=== PATIENT | male | born 1995 | race Caucasian/White ===

== ENCOUNTER 2017-07-17 08:42 | Emergency (ER) | payer SELFPAY ==
[~2017-07-17] VITALS: Ht 175.3 cm; Wt 97.6 kg
[~2017-07-17 08:42] MED LIST: ACHD5005 PO; LEVO500T80 PO; ONDAN4ODT PO
--- OUTSIDE RECORDS SUMMARY | 2017-07-17 08:50 | XMS REPORT ---
Author Author AD MARX Organization [employer] Address Unknown Phone Unavailable Care Team Providers Care Weight Shifter Name Role Phone DA MARX CP Unavailable Allergies, Adverse Reactions, Alerts Substance Reaction Event Type N.K.D.A. Info Not Available Non Drug Allergy Problems Problem Type Condition Code Onset Dates Condition Status Assessment Intractable migraine without aura and without status migrainosus G43.019 Active Medications No Known Medications Procedures Procedure Coding System Code Date TORADOL (IM) 60 MG/2ML (UP TO 15 MG) CPT-4 J1885 May 07, 2015 THER/PROPH/DIAG INJ, SC/IM CPT-4 14739 May 07, 2015 Office Visit, Est Pt., Level 3 CPT-4 02013 May 07, 2015 PHENERGAN (IM) 25 MG (25 MG/ML) CPT-4 J2550 May 07, 2015 Vital Signs Date/Time: May 07, 2015 Temperature 98.0 F Weight 190.8 lbs Height 68 in Pain Scale 7.5 1-10 Blood Pressure Diastolic 74 mmHg Blood Pressure Systolic 128 mmHg Cardiac Monitoring Heart Rate 74 bpm BMI 29.01 Index Results No Known Results Summary Purpose [employer] Submission
--- OUTSIDE RECORDS SUMMARY | 2017-07-17 08:50 | XMS REPORT ---
Author Author ULI CLARK Organization [employer] Address Unknown Phone Unavailable Care Team Providers Care Foreign Language Instructor Name Role Phone ULI CLARK CP Unavailable Allergies, Adverse Reactions, Alerts Substance Reaction Event Type N.K.D.A. Info Not Available Non Drug Allergy Problems Problem Type Condition Code Onset Dates Condition Status Assessment Sore throat J02.9 Active Medications No Known Medications Procedures Procedure Coding System Code Date Office Visit, Est Pt., Level 3 CPT-4 09754 Jul 28, 2015 Vital Signs Date/Time: Jul 28, 2015 Temperature 98.6 F Weight 202.4 lbs Height 68 in BMI 30.77 Index Blood Pressure Diastolic 82 mmHg Blood Pressure Systolic 124 mmHg Cardiac Monitoring Heart Rate 74 bpm Results No Known Results Summary Purpose [employer] Submission
--- OUTSIDE RECORDS SUMMARY | 2017-07-17 08:50 | XMS REPORT ---
Author Author MADAI Barroso Organization [facility] Address Unknown Care Team Providers Care Farm Loan Inspector Name Role Phone MADAI Barroso Unavailable PROBLEMS Type Condition ICD9-CM Code [id number] Code Onset Dates Condition Status SNOMED Code Assessment Right wrist pain M25.531 Oct, Active [id number] ALLERGIES Substance Reaction Event Type Date Status N.K.D.A. Unknown Non Drug Allergy Oct, Unknown SOCIAL HISTORY No smoking Hx information available PLAN OF CARE VITAL SIGNS Height 68 in 2015-10-12 Weight 211.8 lbs 2015-10-12 Heart Rate 76 bpm 2015-10-12 Respiratory Rate 18 2015-10-12 BMI 32.20 kg/m2 2015-10-12 Blood pressure systolic 124 mmHg 2015-10-12 Blood pressure diastolic 92 mmHg 2015-10-12 MEDICATIONS Medication Instructions Dosage Frequency Start Date End Date Duration Status Naprosyn 500 MG Orally every 12 hrs 1 tablet as needed 12h Oct, Oct, 07 days Active RESULTS No Results PROCEDURES Procedure Date Ordered Related Diagnosis Body Site X-RAY EXAM OF WRIST October 12, 2015 X-RAY EXAM OF HAND October 12, 2015 THER/PROPH/DIAG INJ, SC/IM October 12, 2015 TORADOL (IM) 60 MG/2ML (UP TO 15 MG) October 12, 2015 IMMUNIZATIONS Vaccine Route Administration Date Status TORADOL (IM) 60 MG/2ML (UP TO 15 MG) Unknown October 12, 2015 Administered
--- OUTSIDE RECORDS SUMMARY | 2017-07-17 08:50 | XMS REPORT ---
Author Author BOONE FOSS Organization [facility] Address [address] [place] [address] Care Team Providers Care Flat Optical Element Maker Name Role Phone BOONE FOSS Unavailable PROBLEMS Unknown Problems ALLERGIES Substance Reaction Event Type Date Status N.K.D.A. Unknown Non Drug Allergy Mar, Unknown SOCIAL HISTORY No smoking Hx information available PLAN OF CARE Activity Details Follow Up prn Reason: VITAL SIGNS Height 68 in 2016-04-01 Weight 217.4 lbs 2016-04-01 Temperature 97.9 degrees Fahrenheit 2016-04-01 Heart Rate 84 bpm 2016-04-01 Respiratory Rate 16 2016-04-01 BMI 33.05 kg/m2 2016-04-01 Blood pressure systolic 126 mmHg 2016-04-01 Blood pressure diastolic 84 mmHg 2016-04-01 MEDICATIONS No Known Medications RESULTS No Results PROCEDURES Procedure Date Ordered Related Diagnosis Body Site TORADOL (IM) 60 MG/2ML (UP TO 15 MG) Apr 01, 2016 THER/PROPH/DIAG INJ, SC/IM Apr 01, 2016 Office Visit, Est Pt., Level 3 Apr 01, 2016 IMMUNIZATIONS Vaccine Route Administration Date Status TORADOL (IM) 60 MG/2ML (UP TO 15 MG) IM Intramuscular Apr 01, 2016 Administered
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
[2017-07-17] MEDS ORDERED: IBUPROFEN 800 MG (MOTRIN) TAB PO ONE (08:54)
[2017-07-17] MEDS ORDERED: ACETAMINOPHEN 500 MG TAB (TYLENOL) ONE (08:55)
[2017-07-17] MEDS ORDERED: IBUPROFEN 800 MG (MOTRIN) TAB PO STA (08:55)
[2017-07-17] MEDS ORDERED: ACETAMINOPHEN 500 MG TAB (TYLENOL) PO STA (08:55)
--- NOTE | 2017-07-17 09:59 | ED Cough/URI ---
General Chief Complaint: Cough/Cold/Flu Symptoms Stated Complaint: FEVER OF 103 Nursing Triage Note: PT TO ROOM 6 PT CO OF COLD COUGH AND FLU SX SINCE TUESDAY, PT STATES FEVER UP TO 103.6 AT HOME, HAS NOT TAKEN TYLENOL SINCE LAST PM. Source: patient Exam Limitations: no limitations History of Present Illness Time seen by provider: 08:55 Initial Comments Here with report of cough and cold symptoms since Tuesday 4 days ago. Fever reportedly 103 at home. He has not taken any Tylenol or ibuprofen today. He did take Tylenol yesterday. He did not get his flu shot. He is over the road salesforce administrator. Denies nausea or vomiting. Timing/Duration: getting worse, other (4 days) Severity/Quality: moderate, dry cough Prior Episodes/Possible Cause: occasional episodes Associated Symptoms: cough, fever/chills, muscle aches, nasal congestion, nasal drainage, sore throat Allergies and Home Medications Allergies Coded Allergies: latex (Verified Allergy, Severe, RASH, 05/15/13) Home Medications No Active Prescriptions or Reported Meds Constitutional: see HPI, chills, fever, malaise EENTM: see HPI Respiratory: see HPI Cardiovascular: no symptoms reported, No chest pain Gastrointestinal: No abdominal pain, No nausea, No vomiting Genitourinary: no symptoms reported Musculoskeletal: see HPI, muscle pain, No muscle stiffness Skin: no symptoms reported Psychiatric/Neurological: See HPI, Headache (mild global), Denies Numbness, Denies Paresthesia Hematologic/Lymphatic: No Symptoms Reported All Other Systems Reviewed Negative Unless Noted: Yes Past Zdoalcw-Tcimhp-Crgkxq Hx Patient Social History Alcohol Use: Denies Use Recreational Drug Use: No Smoking Status: Current Everyday Smoker Type Used: Cigarettes, Smokeless Tobacco Former Smoker, Quit: Mar 16, 2016 Recent Foreign Travel: No Contact w/Someone Who Travel: No Recent Infectious Disease Expo: No Recent Hopitalizations: No Physical Abuse: No Sexual Abuse: No Immunizations Up To Date Tetanus Booster (TDap): Less than 5yrs Seasonal Allergies Seasonal Allergies: No Surgeries History of Surgeries: Yes (TEETH REMOVED) Respiratory History of Respiratory Disorde: No Cardiovascular History of Cardiac Disorders: No Neurological History of Neurological Disord: No Reproductive System Hx Reproductive Disorders: No Gastrointestinal History of Gastrointestinal Di: No Musculoskeletal History of Musculoskeletal Dis: No Endocrine History of Endocrine Disorders: No Cancer History of Cancer: No Psychosocial History of Psychiatric Problem: No Suicide Risk Score: 0 Integumentary History of Skin or Integumenta: No Blood Transfusions History of Blood Disorders: No Reviewed Nursing Assessment Reviewed/Agree w Nursing PMH: Yes Family Medical History Significant Family History: No Pertinent Family Hx Physical Exam Vital Signs Vital Sign - Last 12Hours 07/17/17 08:45 Temp 102.4 Pulse 112 Resp 18 B/P (MAP) 144/80 (101) Pulse Ox 97 Capillary Refill : Less Than 3 Seconds General Appearance: WD/WN, no apparent distress HEENT: PERRL/EOMI, pharyngeal erythema, other (moderate bilateral nasal congestion with clear rhinorrhea and moderate erythema) Neck: full range of motion, supple Respiratory: lungs clear, normal breath sounds Cardiovascular: regular rate, rhythm, no murmur, tachycardia Gastrointestinal: non tender, soft Extremities: non-tender, normal inspection Neurologic/Psychiatric: alert, oriented x 3 Skin: normal color, warm/dry Progress/Results/Core Measures Suspected Sepsis Recent Fever Within 48 Hours: Yes Infection Criteria Present: Suspected New Infection New/Unexplained Altered Menta: No Sepsis Screen: Possible Sepsis Risk Sepsis Diagnosis: SIRS Temperature:102.4 Pulse: 112 Respiratory Rate: 18 Blood Pressure 144 /80 Mean: 101 Results/Orders Micro Results Microbiology 07/17/17 Influenza Types A,B Antigen (EDYTA) - Final, Complete My Orders Orders - JOAO CORONADO MD Influenza A And B Antigens (07/17/17 08:50) Acetaminophen Tablet (Tylenol Tablet) (07/17/17 08:55) Ibuprofen Tablet (Motrin Tablet) (07/17/17 08:55) Ibuprofen Tablet (Motrin Tablet) (07/17/17 08:54) Acetaminophen Tablet (Tylenol Tablet) (07/17/17 08:55) Vital Signs/I&O Vital Sign - Last 12Hours 07/17/17 08:45 Temp 102.4 Pulse 112 Resp 18 B/P (MAP) 144/80 (101) Pulse Ox 97 Capillary Refill : Less Than 3 Seconds Blood Pressure Mean: 101 Progress Note : Progress Note Seen and evaluated. Influenza screen ordered. Ibuprofen 800 mg by mouth and Tylenol 1000 mg by mouth ordered. Monitor patient. 0950: Influenza screen is positive. Fever down to 99.7. Feels a little better. Tamiflu would not be of benefit on this patient due to length of time with illness. This was discussed with the patient who agrees. Discharged home with return precautions. Patient verbalize understanding instructions and agreement with plan. Departure Impression Impression: Primary Impression: Influenza A Disposition: 01 HOME, SELF-CARE Condition: Stable Departure-Patient Inst. Decision time for Depature: 09:58 Referrals: [facility] (PCP/Family) Primary Care Physician Patient Instructions: Flu, Adult (DC) Add. Discharge Instructions: All discharge instructions reviewed with patient and/or family. Voiced understanding. You may take ibuprofen 800 mg every 8 hours as needed for pain and fever. You may take Tylenol 1000 mg every 8 hours as needed. Pain or fever. Drink plenty of fluids. Get plenty of rest. Return for worsening, fever, vomiting, weakness , breathing problems or other concerns as needed. Scripts No Active Prescriptions or Reported Meds JOAO CORONADO MD Jul 17, 2017 09:59
[2017-07-17 10:03] VITALS: BP 144/80
== END 2017-07-17 10:02 | disposition home or self-care (01) ==
LOC: EDUNIT# 08:42 → ER 08:45
DX: J10.1 Influenza due to other identified influenza virus with other respiratory manifestations (principal); F17.210 Nicotine dependence, cigarettes, uncomplicated
CPT/HCPCS: 87804; 99283

== ENCOUNTER 2019-02-01 09:44 | Day surgery (SDC) | payer OTHER ==
[~2019-02-01] VITALS: Ht 175.3 cm; Wt 108.9 kg
[2019-02-01] VITALS (10 sets, daily range): BP systolic 123–139; BP diastolic 56–79
--- OUTSIDE RECORDS SUMMARY | 2019-02-01 09:51 | XMS REPORT ---
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 [facility] [place] [address] [address] Oct, [facility] [id number] [place] [address] Jul, Encounter for immunization Z23 [facility] [address] [address] Jan, Bronchitis J40 [facility] [place] [id number] [place] [address] Mar, Left facial swelling R22.0 [facility] [place] [id number] [place] [address] Oct, Right wrist pain M25.531 [facility] [id number] [place] [address] Jul, Sore throat J02.9 [facility] [place] [id number] [place] [phone] Apr, Intractable migraine without aura and without status migrainosus G43.019 [facility] [address] [place] [phone] Dec, Dental examination V72.2 [facility] [place] [id number] [place] [address] Oct, [place] [id number] [address] Oct, [facility] [place] [address] [place] [address] Oct, [facility] [place] [address] [place] [address] Oct, [facility] [place] [address] [place] [address] Sep, [facility] [place] [address] [place] [address] Sep, [facility] [place] [address] [place] [address] May, [facility] [place] [address] [place] [address] May, IMMUNIZATIONS No Known Immunizations SOCIAL HISTORY Never Assessed [place]AS[place] [place] VITAL SIGNS MEDICATIONS Medication Instructions Dosage Frequency Start Date End Date Duration Status Ativan 0.5 mg 1 tablet by Oral route 1 time per day PRN take prn for anxiety Oct, Active RESULTS No Results PROCEDURES No Known procedures INSTRUCTIONS MEDICATIONS ADMINISTERED No Known Medications MEDICAL (GENERAL) HISTORY Type Description Date Medical History hypoglycemia Medical History Rib fracture right side. Hospitalization History Right side pain 2015
--- OUTSIDE RECORDS SUMMARY | 2019-02-01 09:51 | XMS REPORT ---
Author Author JUDE BOBO [facility] Address [address] [place] [address] Phone Unavailable Care Team Providers Care Wreath And Garland Maker Hand Name Role Phone JUDE BOBO Unavailable Unavailable PROBLEMS Unknown Problems ALLERGIES No Information ENCOUNTERS Encounter Location Date Diagnosis [facility] [address] [address] Oct, [facility] [address] [address] Jul, Encounter for immunization Z23 [facility] [address] [address] Jan, Bronchitis J40 [facility] [address] [address] Mar, Left facial swelling R22.0 [facility] [address] [address] Oct, Right wrist pain M25.531 [facility] [id number] [place] [address] Jul, Sore throat J02.9 [facility] [address] [address] Apr, Intractable migraine without aura and without status migrainosus G43.019 [facility] [id number] [place] [phone] Dec, Dental examination V72.2 [facility] [address] [address] Oct, 2014 [facility] [address] [address] Oct, [facility] [address] [facility] [id number] [address] Oct, [facility] [id number] [address] Oct, [facility] [id number] [address] Sep, [facility] [id number] [address] Sep, [facility] [id number] [address] May, [facility] [id number] [address] May, IMMUNIZATIONS No Known Immunizations SOCIAL HISTORY Never Assessed REASON FOR VISIT [facility]---HIV DRAW- Pt brought kit and remediation consultant for specimen. Lab was drawn and sent f or testing.----GENI PLAN OF CARE VITAL SIGNS MEDICATIONS Unknown Medications RESULTS No Results PROCEDURES No Known procedures INSTRUCTIONS MEDICATIONS ADMINISTERED No Known Medications MEDICAL (GENERAL) HISTORY Type Description Date Medical History hypoglycemia Hospitalization History Right side pain
--- OUTSIDE RECORDS SUMMARY | 2019-02-01 09:51 | XMS REPORT ---
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 [facility] [id number] [place] [address] Oct, [facility] [address] [address] Jul, Encounter for immunization Z23 [facility] [id number] [place] [address] Jan, Bronchitis J40 [facility] [id number] [place] [address] Mar, Left facial swelling R22.0 [facility] [id number] [place] [address] Oct, Right wrist pain M25.531 [facility] [id number] [place] [address] Jul, Sore throat J02.9 [facility] [address] [address] Apr, Intractable migraine without aura and without status migrainosus G43.019 [facility] [id number] [place] [id number] Dec, Dental examination V72.2 [facility] [address] [place] [address] 14 Oct, 2014 [facility] [id number] [address] 13 Oct, 2014 [facility] [address] [id number] [address] Oct, [facility] [address] [id number] [address] Oct, [facility] [address] [id number] [address] Sep, [facility] [id number] [address] Sep, [facility] [id number] [address] May, [facility] [address] [id number] [address] May, IMMUNIZATIONS No Known Immunizations SOCIAL HISTORY Never Assessed REASON FOR VISIT [facility] (PHA, vision, audio).GENI PLAN OF CARE Activity Details Follow Up prn Reason: VITAL SIGNS Height 68 in 2018-02-14 Weight 230 lbs 2018-02-14 Temperature 98.9 degrees Fahrenheit 2018-02-14 Heart Rate 76 bpm 2018-02-14 Respiratory Rate 16 2018-02-14 BMI 34.97 kg/m2 2018-02-14 Blood pressure systolic 110 mmHg 2018-02-14 Blood pressure diastolic 80 mmHg 2018-02-14 MEDICATIONS Medication Instructions Dosage Frequency Start Date End Date Duration Status Ibuprofen 200 MG Orally every 6 hrs 1 tablet with food or milk as needed 6h Active RESULTS No Results PROCEDURES Procedure Date Ordered Result Body Site VISUAL ACUITY SCREEN Feb 14, 2018 AUDIOMETRY-SCREEN Feb 14, 2018 INSTRUCTIONS MEDICATIONS ADMINISTERED No Known Medications MEDICAL (GENERAL) HISTORY Type Description Date Medical History hypoglycemia Medical History Rib fracture right side. Hospitalization History Right side pain 2015
--- OUTSIDE RECORDS SUMMARY | 2019-02-01 09:51 | XMS REPORT ---
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 [facility] [address] [address] Oct, [facility] [id number] [place] [address] Jul, Encounter for immunization Z23 [facility] [address] [address] Jan, Bronchitis J40 [facility] [place] [id number] [place] [address] Mar, Left facial swelling R22.0 [facility] [place] [id number] [place] [address] Oct, Right wrist pain M25.531 [facility] [id number] [place] [address] Jul, Sore throat J02.9 [facility] [id number] [place] [address] Apr, Intractable migraine without aura and without status migrainosus G43.019 [facility] [address] [place] [id number] Dec, Dental examination V72.2 [facility] [id number] [place] [phone] Oct, [place] [id number] [address] Oct, [facility] [id number] [address] Oct, [facility] [address] [place] [address] Oct, [facility] [id number] [address] Sep, [facility] [id number] [address] Sep, [facility] [id number] [address] May, [facility] [id number] [address] May, IMMUNIZATIONS No Known Immunizations SOCIAL HISTORY Never Assessed REASON FOR VISIT [facility] PLAN OF CARE VITAL SIGNS MEDICATIONS Unknown Medications RESULTS No Results PROCEDURES No Known procedures INSTRUCTIONS MEDICATIONS ADMINISTERED No Known Medications MEDICAL (GENERAL) HISTORY Type Description Date Medical History hypoglycemia Medical History Rib fracture right side. Hospitalization History Right side pain 2015
--- OUTSIDE RECORDS SUMMARY | 2019-02-01 09:52 | XMS REPORT ---
Author Author BOONE FOSS Organization [facility] Address [address] [place] [address] Care Team Providers Care Ore Crusher Name Role Phone BOONE FOSS Unavailable PROBLEMS Unknown Problems ALLERGIES No Known Allergies ENCOUNTERS Encounter Location Date Diagnosis [facility] [address] [address] Oct, [facility] [address] [address] Jul, Encounter for immunization Z23 [facility] [address] [address] Jan, Bronchitis J40 [facility] [address] [address] Mar, Left facial swelling R22.0 [facility] [address] [address] Oct, Right wrist pain M25.531 [facility] [address] [address] Jul, Sore throat J02.9 [facility] [address] [address] Apr, Intractable migraine without aura and without status migrainosus G43.019 [facility] [address] [id number] Dec, Dental examination V72.2 [facility] [address] [address] 14 Oct, 2014 [facility] [address] [address] Oct, [facility] [address] [facility] [id number] [address] Oct, [facility] [address] [facility] [id number] [address] Oct, [facility] [address] [facility] [id number] [address] Sep, [facility] [address] [facility] [id number] [address] Sep, [facility] [address] [facility] [id number] [address] May, [facility] [address] [facility] [id number] [address] May, IMMUNIZATIONS No Known Immunizations SOCIAL HISTORY Never Assessed REASON FOR VISIT Cough, feels crackling when exhale, up at night JStrasserRN, Dislocated hip abou t 1 month ago - was treated at some clinic near [facility] Activity Details Follow Up prn Reason: VITAL SIGNS Height 68 in 2017-01-13 Weight 211.0 lbs 2017-01-13 Temperature 97.5 degrees Fahrenheit 2017-01-13 Heart Rate 88 bpm 2017-01-13 Respiratory Rate 18 2017-01-13 Oximetry 95 % 2017-01-13 BMI 32.08 kg/m2 2017-01-13 Blood pressure systolic 132 mmHg 2017-01-13 Blood pressure diastolic 98 mmHg 2017-01-13 MEDICATIONS Medication Instructions Dosage Frequency Start Date End Date Duration Status PredniSONE 20 mg Orally Once a day 2 tablet 24h Jan, Jan, 05 days Active Ibuprofen 200 MG Orally every 6 hrs 1 tablet with food or milk as needed 6h Active RESULTS No Results PROCEDURES Procedure Date Ordered Result Body Site NEBULIZER TREATMENT 2017-01-13 N/A NEB/MDI RX INITIAL January 13, 2017 MEASURE BLOOD OXYGEN LEVEL January 13, 2017 INSTRUCTIONS MEDICATIONS ADMINISTERED No Known Medications MEDICAL (GENERAL) HISTORY Type Description Date Medical History hypoglycemia Hospitalization History Right side pain
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
--- NOTE | 2019-02-01 10:03 | Progress Note-Pre Operative ---
Pre-Operative Progress Note H&P Reviewed The H&P was reviewed, patient examined and no changes noted. Time Seen by Provider: 10:01 Date H&P Reviewed: Feb 01, 2019 Time H&P Reviewed: 10:02 Pre-Operative Diagnosis: Pilonidal Cyst BHAVNA ZAMUDIO DO Feb 01, 2019 10:03
[2019-02-01] MEDS ORDERED: LACTATED RINGERS 1,000 ML IV PRN (10:56)
[2019-02-01] MEDS ORDERED: ceFAZolin 2 GM/50 ML NS 50 ML IV ONE (11:00)
[2019-02-01] MEDS ORDERED: LIDOCAINE PF 2% 5 ML (XYLOCAINE) VIAL ONE (11:40)
[2019-02-01] MEDS ORDERED: proPOfol 200 MG/20 ML (DIPRIVAN) VIAL IV ONE (11:40)
[2019-02-01] MEDS ORDERED: ROCURONIUM 10 MG/ML 5 ML SYRINGE IV ONE (11:40)
[2019-02-01] MEDS ORDERED: ONDANSETRON 4 MG/2 ML (SDV) Z0FRAN ONE (11:40)
[2019-02-01] MEDS ORDERED: MIDAZOLAM 2 MG/2 ML (VERSED) VIAL ONE (11:41)
[2019-02-01] MEDS ORDERED: fentaNYL INJECTION 100 MCG/2 ML AMP ONE (11:41)
[2019-02-01] MEDS ORDERED: BUP/EPI 0.5% 1:200,000 (MARCAINE) 10ML VIAL IJ ONE (11:41)
[2019-02-01] MEDS ORDERED: GLYCOPYRROLATE 0.2 MG/ML (ROBINUL) 2 ML VIAL ONE (11:49)
[2019-02-01] MEDS ORDERED: NEOSTIGMINE 3 MG/3 ML VIAL ONE (11:49)
[2019-02-01] MEDS ORDERED: ACHD5005 PO (12:26)
--- NOTE | 2019-02-01 12:26 | Progress Note-Post Operative ---
Post-Operative Progess Note Surgeon (s)/Operations Intelligence (s) Surgeon BHAVNA ZAMUDIO DO Operations Intelligence: none Pre-Operative Diagnosis Pilonidal Cyst Post-Operative Diagnosis same Procedure & Operative Findings Date of Procedure 02/01/19 Procedure Performed/Findings Exc pilonidal cyst; appx 4cm long by 3 cm deep by 0.5 cm wide Anesthesia Type GET Estimated Blood Loss Estimated blood loss (mL): scant Specimens/Packing Specimens Removed pilonidal cyst BHAVNA ZAMUDIO DO Feb 01, 2019 12:25
--- NOTE | 2019-02-01 12:28 | Discharge Inst-Surgical ---
Discharge Inst-Surgical Depart Medication/Instructions New, Converted or Re-Newed RX: RX Given to Pt/Family Patient Instructions Follow up Appt: Make appointment for 2 weeks. [phone] Instructions: No strenuous activity. May shower in 24 hours, no tub bath or soaking. Use incentive spirometer at home as directed. No Smoking Skin/Wound Care: May remove bandages in am. You need to leave the Dermabond on incision it will fall off on it's own. Symptoms to Report: Appetite Changes, Extremity Discoloration, Numbness/Tingling, Swelling Increased, Bleeding Excessive, Eyesight Changes, Pain Increased, Urine Color Ch iza, Constipation(Persistent), Fever over 101 degree F, Pain/Pressure in chest, Urinating Difficulty, Cough Up/Vomit Blood, Heart Beat Irreg/Pounding, Pain/Pressure in jaw, Cramps in feet or legs, Lightheadedness, Pain/Pressure in shoulder, Diarrhea(Persistent), Memory Changes Suddenly, Questions/Concerns, Weight gain consecutive days, Dizziness/Fainting, Nausea/Vomiting, Shortness of Breath, Weight gain over 2 pounds If questions or concerns contact your physician Or seek help at emergency department. Activity Activity as Tolerated: Yes Activity Instructions: Avoid Stress to Incision Driving Instructions: No Driving/Refer to Dr. Lawson Discharge Diet: No Restrictions Diet After 24 Hours: Clear Liquid if Nauseous If Any Problems/Questions/Issu: Contact Your Physician, Go to Emergency Room Skin/Wound Care Infection Signs and Symptoms: Increased Redness, Foul Odor of Wound, Increased Drainage, Skin Itchy or Has a Rash, Increased Swelling, Temperature Above 101 F Wound Care Comment: Come to the office for packing changes Bathing Instructions: BHAVNA Montelongo DO Feb 01, 2019 12:28
[2019-02-01] MEDS ORDERED: SEVOFLURANE (ULTANE) 15 ML INHAL SOLN ONE (12:42)
[2019-02-01] MEDS ORDERED: PROMETHAZINE INJ 25 MG/ML (PHENERGAN) AMP IVP ONE (12:45)
[2019-02-01] MEDS ORDERED: morphine INJ 10 MG/ML 1ML (SYR OR VIAL) IVP ONE (12:45)
[2019-02-01] MEDS ORDERED: HYDROmorphone 2 MG/ML VIAL (DILAUDID) IV ONE (12:45)
[2019-02-01] MEDS ORDERED: ONDANSETRON 4 MG/2 ML (SDV) Z0FRAN IVP PRN (12:45)
[2019-02-01] MEDS ORDERED: MEPERIDINE (DEMEROL) INJ 50 MG/ML IVP ONE (12:45)
--- NOTE | 2019-02-01 12:48 | Anesthesia-General Post-Op ---
General Patient Condition Mental Status/LOC: Same as Preop Cardiovascular: Satisfactory Nausea/Vomiting: Absent Respiratory: Satisfactory Pain: Controlled Complications: Absent Post Op Complications Complications None Follow Up Care/Instructions Patient Instructions None needed. Anesthesia/Patient Condition Patient Condition Patient is doing well, no complaints, stable vital signs, no apparent adverse anesthesia problems. No complications reported per nursing. MACIEJ MCDOWELL CRNA Feb 01, 2019 12:48
--- NOTE | 2019-02-01 14:59 | OPERATIVE REPORT ---
DATE OF SERVICE: 02/01/2019 PREOPERATIVE DIAGNOSIS: Pilonidal cyst. POSTOPERATIVE DIAGNOSIS: Pilonidal cyst. PROCEDURE: Excision of pilonidal cyst. SURGEON: Adarsh Sketlon DO. DROP MAN: None. ANESTHESIA: General endotracheal tube. SPECIMEN: Pilonidal cyst. BLOOD LOSS: Scant. FLUIDS: Per anesthesia. POSTOPERATIVE CONDITION: Stable. INDICATION FOR PROCEDURE: The patient is a 23-year-old male who had a pilonidal cyst with abscess that had been drained and now wants to get this removed. FINDINGS: The patient had a pilonidal cyst removed. PROCEDURE NOTE: After informed consent was obtained, the patient was brought to the operating room, intubated and then placed on the table in prone position. He was then sterilely prepped and draped in normal fashion. Local lidocaine was used to infiltrate the area around the pilonidal cyst and made an elliptical incision around the tracks measured about 4 cm x about 3 cm deep x only about 0.5 cm wide. I made an incision with #15 blade, carried down through the skin into subcutaneous tissue then deepened down to subcutaneous tissue with Bovie electrocautery through the fat to try to go around the tracks and remove them completely all the way down to the cecum then passed this off to pathology. Copiously irrigated with normal saline. Hemostasis obtained using Bovie electrocautery. I elected to pack with 0.5-inch iodoform packing packed and then cleaned the area, placed a dressing. The patient tolerated the procedure. Sponge, instrument and needle count correct at the end of the case. Job ID: [id number] DocumentID: [id number] Dictated Date: 02/01/2019 12:24:11 Physician Assistant Date: 02/01/2019 14:58:57 Dictated By: ADARSH SKELTON DO [facility]
== END 2019-02-01 14:40 | disposition home or self-care (01) ==
LOC: SDC 09:44
PROVIDERS: ATTEND Surgery
DX: L05.01 Pilonidal cyst with abscess (principal); Z87.891 Personal history of nicotine dependence; Z91.040 Latex allergy status; Z91.410 Personal history of adult physical and sexual abuse
CPT/HCPCS: 87081; 88304

== ENCOUNTER 2020-08-13 14:24 | Emergency (ER) | payer SELFPAY ==
[~2020-08-13] VITALS: Ht 177 cm; Wt 111.0 kg
[2020-08-13] MEDS ORDERED: ACETAMINOPHEN 500 MG TAB (TYLENOL) PO ONE (15:00)
[2020-08-13 15:04] LABS: BASOPHILS # (AUTO) 0.1 10^3/uL (0.0-0.1); BASOPHILS % (AUTO) 1 % (0-10); EOSINOPHILS # (AUTO) 0.2 10^3/uL (0.0-0.3); EOSINOPHILS % (AUTO) 2 % (0-10); HEMATOCRIT 43 % (40-54); HEMOGLOBIN 14.7 G/DL (13.3-17.7); LYMPHOCYTES # (AUTO) 2.9 X 10^3 (1.0-4.0); LYMPHOCYTES % (AUTO) 38 % (12-44); MEAN CORPUSCULAR HEMOGLOBIN 28 PG (25-34); MEAN CORPUSCULAR HGB CONC 34 G/DL (32-36); MEAN CORPUSCULAR VOLUME 83 FL (80-99); MEAN PLATELET VOLUME 9.1 FL (7.4-10.4); MONOCYTES # (AUTO) 0.8 X 10^3 (0.0-1.0); MONOCYTES % (AUTO) 10 % (0-12); NEUTROPHILS # (AUTO) 3.6 X 10^3 (1.8-7.8); NEUTROPHILS % (AUTO) 48 % (42-75); PLATELET COUNT 331 10^3/uL (130-400); WHITE BLOOD COUNT 7.4 10^3/uL (4.3-11.0)
--- NOTE | 2020-08-13 15:22 | Diagnostic Imaging Report ---
INDICATION: Shortness of breath and dizziness. EXAMINATION: Frontal chest was obtained at 2:57 p.m. FINDINGS: Heart and mediastinal silhouette are normal in appearance. The lungs are clear. There is no pneumothorax or pleural fluid. IMPRESSION: Negative chest. Dictated by: Dictated on workstation # [id number]
[2020-08-13 15:23] LABS: POTASSIUM 3.9 MMOL/L (3.6-5.0); SODIUM 139 MMOL/L (135-145)
[2020-08-13 15:24] LABS: ALANINE AMINOTRANSFERASE 36 U/L (0-55); ALBUMIN 4.6 GM/DL (3.2-4.5); ALKALINE PHOSPHATASE 93 U/L (40-136); BILIRUBIN,TOTAL 0.3 MG/DL (0.1-1.0); BUN/CREATININE RATIO 10; CALCIUM 9.1 MG/DL (8.5-10.1); CARBON DIOXIDE 27 MMOL/L (21-32); CHLORIDE 102 MMOL/L (98-107); GFR ESTIMATED > 60; GLUCOSE 111 MG/DL (70-105); TOTAL PROTEIN 7.8 GM/DL (6.4-8.2)
[2020-08-13] MEDS ORDERED: PROCHLORPERAZINE 10 MG/2ML INJ (COMPAZINE) IV ONE (15:30)
[2020-08-13] MEDS ORDERED: ONDANSETRON 4 MG/2 ML (SDV) Z0FRAN IVP ONE (15:30)
[2020-08-13] MEDS ORDERED: NS IV 1000 ML 1,000 ML IV SCH (15:30)
[2020-08-13 16:41] VITALS: BP 130/82
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
[2020-08-13] MEDS ORDERED: PROC-1 PO (17:13)
== END 2020-08-13 17:15 | disposition home or self-care (01) ==
LOC: EDUNIT# 14:24 → ER FS 14:26
DX: G43.909 Migraine, unspecified, not intractable, without status migrainosus (principal); Z87.891 Personal history of nicotine dependence; Z91.040 Latex allergy status
CPT/HCPCS: 36415; 71045; 80053; 85025

== ENCOUNTER 2021-01-23 15:30 | Emergency (ER) | payer OTHER ==
[~2021-01-23] VITALS: Ht 177 cm; Wt 109.0 kg
[~2021-01-23 15:30] MED LIST changes: +PROC-1 PO
--- NOTE | 2021-01-23 15:58 | Diagnostic Imaging Report ---
INDICATION: Fall, pain. COMPARISON: None available. TECHNIQUE: Three radiographs of the right ankle dated 01/23/2021. FINDINGS: No acute fracture or dislocation. No destructive osseous process. The talar dome is unremarkable. The ankle mortise is symmetric. Mild soft tissue swelling about the ankle, particularly laterally. No suspicious radiopaque foreign body. IMPRESSION: No acute osseous abnormality with soft tissue swelling about the ankle, particularly laterally. Dictated by: Dictated on workstation # [id number]
--- NOTE | 2021-01-23 16:37 | ED Lower Extremity ---
General Chief Complaint: Lower Extremity Stated Complaint: ANKLE INJ Nursing Triage Note: Patient presented to the ER today via EMS with complaints of right ankle pain. Patient works for the [employer] and was working on a water main when he stepped in a whole and began experiencing severe ankle pain. Patient has noted deformity to the right ankle, present strong pulse. Source: patient Exam Limitations: no limitations (RICHARD ALMONTE APRN) History of Present Illness Date Seen by Provider: Jan 23, 2021 (RICHARD ALMONTE APRN) Time Seen by Provider: 15:30 Initial Comments Patient is a 25-year-old male who presents to the emergency department with a chief complaint of right ankle pain. Patient was working for the [employer] when he stepped into a hole and fell down. Patient states he felt and heard a pop in his right ankle. He arrives in a splint per EMS. Complaining of significant pain. Has had 75 mcg of fentanyl prior to arrival. Complains of some subjective numbness to his toes. Onset: just prior to arrival Pain/Injury Location: right ankle Method of Injury: fell (And twisted) Modifying Factors: Improves With Immobilization (SHANNA MANSFIELD MD) Allergies and Home Medications Allergies Coded Allergies: latex (Verified Allergy, Severe, RASH, 05/15/13) Home Medications Hydrocodone Bit/Acetaminophen 1 Tab Tab, 1 TAB PO Q6H PRN for PAIN-MODERATE Prescribed by: BHAVNA ZAMUDIO on 02/01/19 1226 Hydrocodone/Acetaminophen 1 Each Tablet, 1 TAB PO Q4H PRN for PAIN-MODERATE (5- 7) . Prescribed by: RICHARD ALMONTE on 01/23/21 182 Last Action: New Order Prochlorperazine Maleate 10 Mg Tablet, 10 MG PO DAILY Prescribed by: DIDIER GUTIERREZ on 08/13/20 1713 Patient Home Medication List Home Medication List Reviewed: Yes (SHANNA MANSFIELD MD) Review of Systems Constitutional: see HPI EENTM: no symptoms reported Respiratory: no symptoms reported Cardiovascular: no symptoms reported Musculoskeletal: joint pain (Right ankle) (SHANNA MANSFIELD MD) All Other Systems Reviewed Negative Unless Noted: Yes (SHANNA MANSFIELD MD) Past Vlqmvta-Xnzvoy-Jmzbzg Hx Immunizations Up To Date Tetanus Booster (TDap): Less than 5yrs (RICHARD ALMONTE APRN) Seasonal Allergies Seasonal Allergies: No (RICHARD ALMONTE APRN) Past Medical History Surgeries: Yes (TEETH REMOVED) Respiratory: No Cardiac: No Neurological: No Reproductive Disorders: No Genitourinary: No Gastrointestinal: Yes (pilonidal cyst) Musculoskeletal: No Endocrine: No HEENT: No Cancer: No Psychosocial: No Integumentary: No Blood Disorders: No (RICHARD ALMONTE APRN) Family Medical History No Pertinent Family Hx (RICHARD ALMONTE APRN) Physical Exam Vital Signs Vital Signs - First Documented 01/23/21 15:42 Temp 36.6 Pulse 86 Resp 16 B/P (MAP) 131/85 (100) Pulse Ox 98 O2 Delivery Room Air (SHANNA MANSFIELD MD) Vital Signs Capillary Refill : Less Than 3 Seconds (RICHARD ALMONTE APRN) Height, Weight, BMI Height: 5'9.00" Weight: 240lbs. 0.0oz. [id number]; 34.00 BMI Method:Stated (RICHARD ALMONTE APRN) General Appearance: WD/WN, moderate distress Cardiovascular: regular rate, rhythm Respiratory: lungs clear, normal breath sounds, no respiratory distress, no accessory muscle use Hips: bilateral hip non-tender, bilateral hip normal inspection, bilateral hip normal range of motion, bilateral hip no evidence of injury Legs: bilateral leg non-tender, bilateral leg normal inspection, bilateral leg normal range of motion, bilateral leg no evidence of injury Knees: bilateral knee non-tender, bilateral knee normal inspection, bilateral knee normal range of motion, bilateral knee no evidence of injury Ankles: right ankle bone tenderness (Lateral malleolus), right ankle limited range of motion, right ankle pain, right ankle soft tissue tenderness, right ankle swelling (Lateral malleolus) Feet: bilateral foot non-tender, bilateral foot normal inspection, bilateral foot normal range of motion, bilateral foot no evidence of injury Neurologic/Tendon: normal motor functions Neurologic/Psychiatric: alert, normal mood/affect, oriented x 3 Skin: normal color, warm/dry (SHANNA MANSFIELD MD) Progress/Results/Core Measures Results/Orders My Orders Orders - SHANNA MANSFIELD MD Ankle, Right, 3 Views (01/23/21 15:43) (SHANNA MANSFIELD MD) Vital Signs/I&O 01/23/21 01/23/21 15:42 17:30 Temp 36.6 Pulse 86 84 Resp 16 18 B/P (MAP) 131/85 (100) 122/82 Pulse Ox 98 98 O2 Delivery Room Air Room Air (SHANNA MANSFIELD MD) Blood Pressure Mean: 100 Departure Impression Primary Impression: Sprain and strain of ankle Disposition: 01 HOME, SELF-CARE Condition: Stable Departure-Patient Inst. Decision time for Depature: 16:36 (RICHARD ALMONTE APRN) Referrals: [facility] (PCP/Family) Primary Care Physician Patient Instructions: Ankle Sprain ED Add. Discharge Instructions: 1. Elevate the foot is much as possible for the next week. Pain medication as directed. Crutches as directed. All discharge instructions reviewed with patient and/or family. Voiced understanding. Scripts Hydrocodone/Acetaminophen (Hydrocodone-Acetamin 5-325 mg) 1 Each Tablet 1 TAB PO Q4H PRN for PAIN-MODERATE (5-7), #10 TAB . Prov: RICHARD ALMONTE APRN 01/23/21 Work/School Note: Work Release Form Date Seen in the Emergency Department: Jan 23, 2021 Return to Work: Jan 26, 2021 RICHARD ALMONTE APRN Jan 23, 2021 16:37 SHANNA MANSFIELD MD Jan 23, 2021 17:37
[2021-01-23] MEDS ORDERED: ACHD5005 PO ×2 (16:51→18:22)
[2021-01-23 17:30] VITALS: BP 122/82
[2021-01-23] MEDS ORDERED: ONDANSETRON 4 MG (ZOFRAN) ORAL DISSOLVE TAB PO ONE (17:30)
[2021-01-23] MEDS ORDERED: HYDROcodone/APAP 5 MG/325 MG (LORTAB) TAB PO ONE (17:30)
== END 2021-01-23 17:30 | disposition home or self-care (01) ==
LOC: ER 15:30 → EDUNIT# 15:37 → ER 17:30
DX: S93.401A Sprain of unspecified ligament of right ankle, initial encounter (principal); X50.1XXA Overexertion from prolonged static or awkward postures, initial encounter
CPT/HCPCS: 73610

== ENCOUNTER 2021-10-28 19:18 | Emergency (ER) | payer SELFPAY ==
[~2021-10-28] VITALS: Ht 177.8 cm; Wt 113.3 kg
[~2021-10-28 19:18] MED LIST changes: -LEVO500T80 PO; +LEVO500T81 PO
[2021-10-28 19:20] VITALS: BP 132/86
--- NOTE | 2021-10-28 19:28 | ED Chest Pain ---
General Stated Complaint: CP,L ARM NUMBNESS History of Present Illness Date Seen by Provider: Oct 28, 2021 Time Seen by Provider: 19:23 Initial Comments 26-year-old male presents with left-sided chest pain that started around 1 PM this afternoon. Reports that sharp stabbing and constant. Reports he also has a feeling of "numbness" in his left arm.. He reports he was just at in a truck when it started. He denies any injury. Patient has feeling of mild shortness of breath. No reports of recent illness, fever or chills. Patient reports that the pain gets worse with deep breath. Patient drives fertilizer truck for a living. He was set in the truck when the pain started. Allergies and Home Medications Allergies Coded Allergies: latex (Verified Allergy, Severe, RASH, 05/15/13) Patient Home Medication List Home Medication List Reviewed: Yes Hydrocodone Bit/Acetaminophen (Lortab 5 Mg Tablet) 1 Tab Tab, 1 TAB PO Q6H PRN for PAIN-MODERATE Prescribed by: BHAVNA ZAMUDIO on 02/01/19 1226 Hydrocodone/Acetaminophen (Hydrocodone-Acetamin 5-325 mg) 1 Each Tablet, 1 TAB PO Q4H PRN for PAIN-MODERATE (5-7) Prescribed by: RICHARD ALMONTE on 01/23/21 1823 Prochlorperazine Maleate (Compazine) 10 Mg Tablet, 10 MG PO DAILY Prescribed by: DIDIER GUTIERREZ on 08/13/20 1713 Review of Systems Review of Systems Constitutional: No chills, No dizziness, No fever Respiratory: Denies Cough; Shortness of Air Cardiovascular: Chest Pain Gastrointestinal: Nausea; Denies Vomiting Genitourinary: No Symptoms Reported Musculoskeletal: see HPI Skin: no symptoms reported Psychiatric/Neurological: See HPI Endocrine: No Symptoms Reported Hematologic/Lymphatic: No Symptoms Reported Past Ekuqyox-Zgeqer-Nnbmds Hx Immunizations Up To Date Tetanus Booster (TDap): Less than 5yrs Seasonal Allergies Seasonal Allergies: No Past Medical History Surgeries: Yes (TEETH REMOVED) Respiratory: No Cardiac: No Neurological: No Reproductive Disorders: No Genitourinary: No Gastrointestinal: Yes (pilonidal cyst) Musculoskeletal: No Endocrine: No HEENT: No Cancer: No Psychosocial: No Integumentary: No Blood Disorders: No Family Medical History No Pertinent Family Hx Physical Exam Vital Signs Vital Signs - First Documented 10/28/21 19:20 Temp 37.1 Pulse 92 Resp 20 B/P (MAP) 132/86 (101) Pulse Ox 98 O2 Delivery Room Air Capillary Refill : Height, Weight, BMI Height: 5'9.00" Weight: 240lbs. 0.0oz. 108.329136ah; 34.00 BMI Method:Stated General Appearance: No Apparent Distress, WD/WN HEENT: Normal ENT Inspection Neck: Non Tender, Supple Respiratory: Lungs Clear, Normal Breath Sounds Cardiovascular: Regular Rate, Rhythm, No Edema Gastrointestinal: Non Tender, Soft Extremity: Normal Capillary Refill, Normal Inspection, Normal Range of Motion Neurologic/Psychiatric: Alert, Oriented x3, No Motor/Sensory Deficits, Normal Mood/Affect, treater helper II-XII Norm as Tested Skin: Normal Color, Warm/Dry Progress/Results/Core Measures Results/Orders Lab Results Laboratory Tests Test 10/28/21 19:30 Range/Units White Blood Count 10.9 4.3-11.0 10^3/uL Red Blood Count 4.93 4.30-5.52 10^6/uL Hemoglobin 14.1 13.3-17.7 g/dL Hematocrit 41 40-54 % Mean Corpuscular Volume 83 80-99 fL Mean Corpuscular Hemoglobin 29 25-34 pg Mean Corpuscular Hemoglobin Concent 35 32-36 g/dL Red Cell Distribution Width 12.7 10.0-14.5 % Platelet Count 332 130-400 10^3/uL Mean Platelet Volume 9.2 9.0-12.2 fL Immature Granulocyte % (Auto) 0 % Neutrophils (%) (Auto) 57 42-75 % Lymphocytes (%) (Auto) 30 12-44 % Monocytes (%) (Auto) 11 0-12 % Eosinophils (%) (Auto) 1 0-10 % Basophils (%) (Auto) 1 0-10 % Neutrophils # (Auto) 6.3 1.8-7.8 10^3/uL Lymphocytes # (Auto) 3.2 1.0-4.0 10^3/uL Monocytes # (Auto) 1.2 H 0.0-1.0 10^3/uL Eosinophils # (Auto) 0.1 0.0-0.3 10^3/uL Basophils # (Auto) 0.1 0.0-0.1 10^3/uL Immature Granulocyte # (Auto) 0.0 0.0-0.1 10^3/uL Prothrombin Time 13.4 12.2-14.7 SEC INR Comment 1.0 0.8-1.4 Activated Partial Thromboplast Time 30 24-35 SEC D-Dimer 0.35 0.00-0.49 UG/ML Sodium Level 141 135-145 MMOL/L Potassium Level 4.1 3.6-5.0 MMOL/L Chloride Level 104 98-107 MMOL/L Carbon Dioxide Level 25 21-32 MMOL/L Anion Gap 12 5-14 MMOL/L Blood Urea Nitrogen 14 7-18 MG/DL Creatinine 1.13 0.60-1.30 MG/DL Estimat Glomerular Filtration Rate 92 BUN/Creatinine Ratio 12 Glucose Level 94 70-105 MG/DL Calcium Level 9.1 8.5-10.1 MG/DL Corrected Calcium 8.8 8.5-10.1 MG/DL Magnesium Level 1.8 1.6-2.4 MG/DL Total Bilirubin 0.2 0.1-1.0 MG/DL Aspartate Amino Transf (AST/SGOT) 26 5-34 U/L Alanine Aminotransferase (ALT/SGPT) 49 0-55 U/L Alkaline Phosphatase 87 40-136 U/L Myoglobin 37.2 10.0-92.0 NG/ML Troponin I < 0.30 <0.30 NG/ML Total Protein 7.4 6.4-8.2 GM/DL Albumin 4.4 3.2-4.5 GM/DL Lipase 25 8-78 U/L My Orders Orders - AZEVEDO,GUERA L DO Ekg Tracing (10/28/21 19:20) Cbc With Automated Diff (10/28/21 19:32) Magnesium (10/28/21 19:32) Chest 1 View Ap/Pa Only (10/28/21 19:32) Ekg Tracing (10/28/21 19:32) Comprehensive Metabolic Panel (10/28/21 19:32) Myoglobin Serum (10/28/21 19:32) Protime With Inr (10/28/21 19:32) Partial Thromboplastin Time (10/28/21 19:32) Monitor-Rhythm Ecg Trace Only (10/28/21 19:32) Lipid Panel (10/29/21 06:00) Aspirin Chewable Tablet (Baby Aspirin Ch (10/28/21 19:45) Ed Iv/Invasive Line Start (10/28/21 19:32) Lipase (10/28/21 19:32) Fibrin Degradation Products (10/28/21 19:32) Troponin I Fs (10/28/21 19:32) Ketorolac Injection (Toradol Injection) (10/28/21 19:34) Orphenadrine Inj (Ed Only) (Norflex Inje (10/28/21 20:15) Famotidine Injection (Pepcid Injection) (10/28/21 20:15) Medications Given in ED Current Medications Medications Dose Ordered Sig/Akil Route Start Time Stop Time Status Last Admin Dose Admin Aspirin 324 mg ONCE ONCE PO 10/28/21 19:45 10/28/21 19:46 DC 10/28/21 19:39 324 MG Vital Signs/I&O 10/28/21 19:20 Temp 37.1 Pulse 92 Resp 20 B/P (MAP) 132/86 (101) Pulse Ox 98 O2 Delivery Room Air Progress Progress Note : Progress Note Patient discomfort is likely musculoskeletal or potentially pleurisy. Patient with a negative troponin despite the pain started at 1:00 which is greater than 6 hours ago. Patient with negative EKG, negative D-dimer completely normal labs along with normal chest x-ray. Patient does admit that he is going to significant mount of stress at this time and wonders if it could be stress related. Patient stable. Recommended supportive care. He should follow-up with her primary care provider as Initial ECG Impression Date: Oct 28, 2021 Initial ECG Impression Time: 19:24 Initial ECG Rate: 84 Initial ECG Rhythm: Normal Sinus Initial ECG Intervals: Normal Initial ECG Impression: Normal Departure Impression Primary Impression: Acute nonspecific chest pain with low risk of coronary artery disease Disposition: 01 HOME, SELF-CARE Condition: Stable Departure-Patient Inst. Referrals: [facility] (PCP/Family) Primary Care Physician Patient Instructions: Chest Pain That Is Not Caused by the Heart (DC), Stress Add. Discharge Instructions: Follow-up with your primary care provider as needed Work/School Note: Work Release Form Date Seen in the Emergency Department: Oct 28, 2021 Return to Work: Oct 30, 2021 Restrictions: No Restrictions GUERA AZEVEDO DO Oct 28, 2021 19:28
[2021-10-28] MEDS ORDERED: KETOROLAC 30 MG/ML VIAL IVP STA (19:34)
[2021-10-28 19:40] LABS: BASOPHILS # (AUTO) 0.1 10^3/uL (0.0-0.1); BASOPHILS % (AUTO) 1 % (0-10); EOSINOPHILS # (AUTO) 0.1 10^3/uL (0.0-0.3); EOSINOPHILS % (AUTO) 1 % (0-10); HEMATOCRIT 41 % (40-54); HEMOGLOBIN 14.1 g/dL (13.3-17.7); LYMPHOCYTES # (AUTO) 3.2 10^3/uL (1.0-4.0); LYMPHOCYTES % (AUTO) 30 % (12-44); MEAN CORPUSCULAR HEMOGLOBIN 29 pg (25-34); MEAN CORPUSCULAR HGB CONC 35 g/dL (32-36); MEAN CORPUSCULAR VOLUME 83 fL (80-99); MEAN PLATELET VOLUME 9.2 fL (9.0-12.2); MONOCYTES # (AUTO) 1.2 10^3/uL (0.0-1.0); MONOCYTES % (AUTO) 11 % (0-12); NEUTROPHILS # (AUTO) 6.3 10^3/uL (1.8-7.8); NEUTROPHILS % (AUTO) 57 % (42-75); PLATELET COUNT 332 10^3/uL (130-400); WHITE BLOOD COUNT 10.9 10^3/uL (4.3-11.0)
[2021-10-28] MEDS ORDERED: ASPIRIN 81 MG CHEW (CHILDREN'S ASA) PO ONE (19:45)
--- NOTE | 2021-10-28 19:47 | Diagnostic Imaging Report ---
INDICATION: Chest pain. COMPARISON: Prior examination from 08/13/2020. FINDINGS: The heart size, mediastinal configuration, and pulmonary vascularity are within normal limits. There is no pleural effusion, pneumothorax, or pneumonia. The osseous structures are unremarkable. IMPRESSION: No acute cardiopulmonary abnormality. Dictated by: Dictated on workstation # [id number]
[2021-10-28 19:53] LABS: PROTHROMBIN TIME PATIENT 13.4 SEC (12.2-14.7)
[2021-10-28 20:01] LABS: BILIRUBIN,TOTAL 0.2 MG/DL (0.1-1.0); CALCIUM 9.1 MG/DL (8.5-10.1); CREATININE SERUM 1.13 MG/DL (0.60-1.30); MAGNESIUM 1.8 MG/DL (1.6-2.4); POTASSIUM 4.1 MMOL/L (3.6-5.0)
[2021-10-28 20:02] LABS: ALBUMIN 4.4 GM/DL (3.2-4.5); TOTAL PROTEIN 7.4 GM/DL (6.4-8.2)
[2021-10-28] MEDS ORDERED: ORPHENADRINE 60 MG/2 ML (NORFLEX) AMP (ED ONLY) IV STA (20:15)
[2021-10-28] MEDS ORDERED: FAMOTIDINE 20MG/2ML IV (PEPCID) IV STA (20:15)
== END 2021-10-28 20:38 | disposition home or self-care (01) ==
LOC: EDUNIT# 19:18 → ER FS 19:19
DX: R07.89 Other chest pain (principal)
CPT/HCPCS: 36415; 71045; 80053; 83690; 83735; 83874; 84484; 85025; 85379; 85610; 85730; 93005; 93041